=== PATIENT | female | born 1995 | race Caucasian/White ===

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

== ENCOUNTER 2017-02-06 18:18 | Emergency (ER) | payer OTHER ==
--- NOTE | 2017-02-06 19:50 | ER Document Report ---
ED Medical Screen (RME) - General Chief Complaint: Constipation Stated Complaint: ABDOMINAL PAIN Time Seen by Provider: 02/06/17 19:43 Notes: 21-year-old female patient complains of constipation. She reports she has been constipated for 3 weeks prior to having a colonoscopy done on 01/19/2017. She shows me pictures of colonoscopy claiming it shows her being backed up, but unless he is normal colonic mucosa. She reports since the colonoscopy on 2016, she has had generalized abdominal pain, only small hard stools with rectal bleeding. She reports her LMP started today, but she is quite irregular so she is unsure when her previous menstrual period was. I have greeted and performed a rapid initial assessment of this patient. A comprehensive ED assessment and evaluation of the patient, analysis of test results and completion of the medical decision making process will be conducted by additional ED providers. TRAVEL OUTSIDE OF THE [place] IN LAST 30 DAYS: No - Related Data Allergies/Adverse Reactions: latex Allergy (Verified 12/06/16 18:39) Penicillins Allergy (Verified 12/06/16 18:38) Past Medical History Renal/ Medical History: Denies: Hx Peritoneal Dialysis Surgical Hx: Other - Immunizations Hx Diphtheria, Pertussis, Tetanus Vaccination: Yes Physical Exam - Vital signs Vitals: Temp Pulse Resp BP Pulse Ox 99.3 F 87 13 116/69 99 02/06/17 18:23 02/06/17 18:23 02/06/17 18:23 02/06/17 18:23 02/06/17 18:23 Course - Vital Signs Vital signs: Temp Pulse Resp BP Pulse Ox 99.3 F 87 13 116/69 99 02/06/17 18:23 02/06/17 18:23 02/06/17 18:23 02/06/17 18:23 02/06/17 18:23
[2017-02-06 20:30] LABS: ABSOLUTE BASOPHILS # (AUTO) 0.1 10^3/uL (0.0-0.2); ABSOLUTE EOSINOPHILS # (AUTO) 0.1 10^3/uL (0.0-0.6); ABSOLUTE LYMPHOCYTES (AUTO) 3.4 10^3/uL (0.5-4.7); ABSOLUTE MONOCYTES (AUTO) 0.7 10^3/uL (0.1-1.4); ABSOLUTE NEUT (AUTO) 3.6 10^3/uL (1.7-8.2); BASOPHILS % (AUTO) 0.7 % (0-2); EOSINOPHILS % (AUTO) 1.6 % (0-6); HEMATOCRIT 39.3 % (36.0-47.0); HEMOGLOBIN 13.1 g/dL (12.0-15.5); LYMPHOCYTES % (AUTO) 42.9 % (13-45); MEAN CORPUSCULAR HEMOGLOBIN 27.8 pg (27.0-33.4); MEAN CORPUSCULAR HGB CONC 33.5 g/dL (32.0-36.0); MEAN CORPUSCULAR VOLUME 83 fl (80-97); MONOCYTES % (AUTO) 8.9 % (3-13); RED BLOOD COUNT 4.74 10^6/uL (3.72-5.28); RED CELL DISTRIBUTION WIDTH 13.2 % (11.5-14.0); SEGMENTED NEUTROPHILS % (AUTO) 45.9 % (42-78); WHITE BLOOD COUNT 7.9 10^3/uL (4.0-10.5)
[2017-02-06 20:52] LABS: ALANINE AMINOTRANSFERASE 37 U/L (5-35); ALBUMIN 4.6 g/dL (3.7-5.6); ALKALINE PHOSPHATASE 54 U/L (50-135); ANION GAP 12 (5-19); ASPARTATE AMINO TRANSFERASE 28 U/L (5-30); BILIRUBIN,DIRECT 0.3 mg/dL (0.0-0.4); BILIRUBIN,TOTAL 0.4 mg/dL (0.2-1.3); BLOOD UREA NITROGEN 6 mg/dL (7-20); CARBON DIOXIDE 23 mmol/L (22-30); CHLORIDE 106 mmol/L (98-107); CREATININE RESULT 0.68 mg/dL (0.52-1.25); GLUCOSE 83 mg/dL (75-110); POTASSIUM 4.1 mmol/L (3.6-5.0); SODIUM 141.3 mmol/L (137-145); TOTAL PROTEIN 8.1 g/dL (6.3-8.2)
--- NOTE | 2017-02-06 20:58 | ER Document Report ---
ED GI/ - General Chief Complaint: Constipation Stated Complaint: ABDOMINAL PAIN Time Seen by Provider: 02/06/17 19:43 Mode of Arrival: Ambulatory Information source: Patient TRAVEL OUTSIDE OF THE [place] IN LAST 30 DAYS: No - HPI Patient complains to provider of: Abdominal pain, Other - RECTAL BLEEDING, CONSTIPATION Onset: Last week Timing/Duration: Gradual Quality of pain: Cramping Severity at maximum: Moderate Severity in ED: Moderate Context: Other - NO NORMAL B.M. x "WEEKS". denies: Vaginal bleeding (Compared to normal period): None Menstrual period history: denies: - Related Data Allergies/Adverse Reactions: latex Allergy (Verified 02/06/17 21:15) Penicillins Allergy (Verified 02/06/17 21:15) Home Medications: Current Home Medications Fluoxetine HCl [Fluoxetine HCl] 20 mg PO DAILY 02/06/17 [History] Pantoprazole Sodium 40 mg PO DAILY 02/06/17 [History] Past Medical History - General Information source: Patient - Social History Smoking Status: Unknown if Ever Smoked Family History: Reviewed & Not Pertinent Patient has suicidal ideation: No Patient has homicidal ideation: No - Past Medical History Cardiac Medical History: Reports: None Pulmonary Medical History: Reports: None Neurological Medical History: Reports: None Endocrine Medical History: Reports: None Renal/ Medical History: Reports: None. Denies: Hx Peritoneal Dialysis Malignancy Medical History: Reports: None GI Medical History: Reports: None Musculoskeltal Medical History: Reports None Psychiatric Medical History: Reports: Hx Anxiety Surgical Hx: Other - Immunizations Hx Diphtheria, Pertussis, Tetanus Vaccination: Yes Review of Systems - Review of Systems Constitutional: No symptoms reported. denies: Chills, Fever EENT: No symptoms reported Cardiovascular: No symptoms reported Respiratory: No symptoms reported Gastrointestinal: Nausea, Vomiting, Constipation, Rectal bleeding Genitourinary: No symptoms reported Female Genitourinary: denies: Musculoskeletal: No symptoms reported Skin: No symptoms reported Neurological/Psychological: No symptoms reported Physical Exam - Vital signs Vitals: Temp Pulse Resp BP Pulse Ox 99.3 F 87 13 116/69 99 02/06/17 18:23 02/06/17 18:23 02/06/17 18:23 02/06/17 18:23 02/06/17 18:23 Interpretation: Normal - General General appearance: Appears well, Alert In distress: None - HEENT Head: Normocephalic Eyes: Normal Conjunctiva: Normal Ears: Normal Nasal: Normal Mouth/Lips: Normal Mucous membranes: Normal Pharynx: Normal Neck: Normal - Respiratory Respiratory status: No respiratory distress Breath sounds: Normal - Cardiovascular Rhythm: Regular Heart sounds: Normal auscultation Murmur: No - Abdominal Inspection: Normal Bowel sounds: Normal - Rectal Tenderness: No Hemorrhoids: None Notes: NO FISSURES OR OTHER ANAL/PERIANAL LESIONS - Back Back: Normal - Extremities General upper extremity: Normal inspection General lower extremity: Normal inspection - Neurological Neuro grossly intact: Yes Cognition: Normal Orientation: AAOx4 - Psychological Associated symptoms: Normal affect, Normal mood - Skin Skin Temperature: Warm Skin Moisture: Dry Skin Color: Normal Skin Turgor: Elastic Course - Vital Signs Vital signs: Temp Pulse Resp BP Pulse Ox 99.3 F 87 13 116/69 99 02/06/17 18:23 02/06/17 18:23 02/06/17 18:23 02/06/17 18:23 02/06/17 18:23 - Laboratory Result Diagrams: 02/06/17 20:13 02/06/17 20:13 Laboratory results interpreted by me: 02/06/17 20:13 BUN 6 L ALT 37 H Discharge - Discharge Clinical Impression: Constipation Qualifiers: Constipation type: unspecified constipation type Qualified Code(s): K59.00 - Constipation, unspecified Condition: Stable Disposition: HOME, SELF-CARE Instructions: Constipation ([facility]), Laxative ([facility]) Additional Instructions: TAKE MIRALAX DIRECTED UNTIL BOWEL MOVEMENTS ARE PRODUCED, THEN REDUCE DOSAGE TO ONCE A DAY. DRINK PLENTY OF FLUIDS. FOLLOW UP WITH YOUR PRIMARY CARE PROVIDER. Prescriptions: Polyethylene Glycol 3350 [Miralax] 17 gm PO BID PRN #[id number] gm PRN Reason:
[2017-02-06 22:59] VITALS: BP 144/78
== END 2017-02-06 22:58 | disposition home or self-care (01) ==
LOC: ER 18:18
DX: K59.00 Constipation, unspecified (principal); R10.9 Unspecified abdominal pain; Z79.899 Other long term (current) drug therapy
CPT/HCPCS: 36415; 80053; 84703; 85025; 99283

== ENCOUNTER 2017-02-17 17:43 | Emergency (ER) | payer OTHER ==
--- NOTE | 2017-02-17 18:59 | ER Document Report ---
ED Medical Screen (RME) - General TRAVEL OUTSIDE OF THE [place] IN LAST 30 DAYS: No <DILCIA GRIMES - Last Filed: 02/17/17 19:20> <PHILIP DYKES - Last Filed: 02/17/17 19:24> - General Chief Complaint: Bloody Stools Stated Complaint: BLOODY STOOLS Time Seen by Provider: 02/17/17 18:20 Notes: Patient is a 21 year old female presenting to the emergency department for bloody stools. Patient recently had a colonoscopy by Dr. Lilly for constipation. Patient states she is still constipated and is have small blood bowels. Patient states the paper was originally bloody but now both her stools and the paper are bloody. Patient states she has tried several laxatives to help with her symptoms with no relief. Patient states she has nausea and mid abdominal pain. (SYDNEYDILCIA) - Related Data Allergies/Adverse Reactions: latex Allergy (Verified 02/17/17 17:50) Penicillins Allergy (Verified 02/17/17 17:50) Past Medical History - Social History Cigarette use (# per day): No Chew tobacco use (# tins/day): No Frequency of alcohol use: None Drug Abuse: None Renal/ Medical History: Denies: Hx Peritoneal Dialysis Psychiatric Medical History: Reports: Hx Anxiety - Immunizations Hx Diphtheria, Pertussis, Tetanus Vaccination: Yes <DILCIA GRIMES - Last Filed: 02/17/17 19:20> Physical Exam <DILCIA GRIMES - Last Filed: 02/17/17 19:20> <PHILIP DYKES - Last Filed: 02/17/17 19:24> - Vital signs Vitals: Temp Pulse Resp BP Pulse Ox 97.5 F 87 20 118/70 98 02/17/17 17:50 02/17/17 17:50 02/17/17 17:50 02/17/17 17:50 02/17/17 17:50 - Notes Notes: GENERAL: Alert, interacts well, appears comfortable. No acute distress. LUNGS: Clear to auscultation bilaterally, no wheezes, rales, or rhonchi. No respiratory distress. HEART: Regular rate and rhythm. No murmurs, gallops, or rubs. ABDOMEN: Soft, mild abdominal tenderness with palpation in a seated position. No rigidity, no guarding. Non-distended. Bowel sounds present in all 4 quadrants. NEUROLOGICAL: Alert and oriented x3. Normal speech. SKIN: Normal skin tone. No pallor. (DILCIA GRIMES) Course - Laboratory Result Diagrams: 02/17/17 18:56 02/17/17 18:56 <DILCIA GRIMES - Last Filed: 02/17/17 19:20> - Laboratory Result Diagrams: 02/17/17 18:56 02/17/17 18:56 <PHILIP DYKES - Last Filed: 02/17/17 19:24> - Vital Signs Vital signs: Temp Pulse Resp BP Pulse Ox 97.5 F 87 20 118/70 98 02/17/17 17:50 02/17/17 17:50 02/17/17 17:50 02/17/17 17:50 02/17/17 17:50 - Laboratory Laboratory results interpreted by me: 02/17/17 18:56 WBC 12.2 H Absolute Neutrophils 8.3 H Scribe Documentation - Scribe Written by Scribsoren:: J Carlos Urias 02/17/17 19:00 acting as scribe for :: Julia <DILCIA GRIMES - Last Filed: 02/17/17 19:20>
[2017-02-17 19:11] LABS: ABSOLUTE EOSINOPHILS # (AUTO) 0.1 10^3/uL (0.0-0.6); ABSOLUTE LYMPHOCYTES (AUTO) 2.8 10^3/uL (0.5-4.7); ABSOLUTE NEUT (AUTO) 8.3 10^3/uL (1.7-8.2); BASOPHILS % (AUTO) 0.3 % (0-2); EOSINOPHILS % (AUTO) 1.1 % (0-6); HEMATOCRIT 38.5 % (36.0-47.0); HEMOGLOBIN 13.2 g/dL (12.0-15.5); HGB HCT DIFFERENCE 1.1; LYMPHOCYTES % (AUTO) 22.6 % (13-45); MEAN CORPUSCULAR HEMOGLOBIN 27.9 pg (27.0-33.4); MEAN CORPUSCULAR HGB CONC 34.2 g/dL (32.0-36.0); MEAN CORPUSCULAR VOLUME 82 fl (80-97); MONOCYTES % (AUTO) 8.1 % (3-13); RED BLOOD COUNT 4.72 10^6/uL (3.72-5.28); RED CELL DISTRIBUTION WIDTH 13.1 % (11.5-14.0); SEGMENTED NEUTROPHILS % (AUTO) 67.9 % (42-78); WHITE BLOOD COUNT 12.2 10^3/uL (4.0-10.5)
[2017-02-17 19:18] LABS: PROTHROMBIN TIME 13.3 SEC (11.4-15.4)
--- NOTE | 2017-02-17 19:28 | RADIOLOGY REPORT (SQ) ---
EXAM DESCRIPTION: KUB/ABDOMEN (SINGLE VIEW) COMPLETED DATE/TIME: 02/17/2017 7:16 pm REASON FOR STUDY: s/p colonoscopy, c/o inc pain, bleeding, r/o perf COMPARISON: None. NUMBER OF VIEWS: One view. TECHNIQUE: Supine radiographic image of the abdomen acquired. LIMITATIONS: None. FINDINGS: BOWEL GAS PATTERN: Normal bowel gas pattern. No dilated loops. CALCIFICATIONS: No suspicious calcifications. SOFT TISSUES: No gross mass or suggestion of organomegaly. HARDWARE: None in the abdomen. BONES: No acute fracture. No worrisome bone lesions. OTHER: No other significant finding. IMPRESSION: NO RADIOGRAPHIC EVIDENCE FOR ACUTE ABDOMINAL DISEASE. PLEASE NOTE PERFORATION CANNOT BE EXCLUDED THIS IS A SINGLE SUPINE VIEW. IF CONCERN FOR FREE AIR, RECOMMEND UPRIGHT VIEW. TECHNICAL DOCUMENTATION: JOB ID: [id number] [employer]- All Rights Reserved
[2017-02-17 19:31] LABS: ALANINE AMINOTRANSFERASE 31 U/L (5-35); ALBUMIN 4.9 g/dL (3.7-5.6); ALKALINE PHOSPHATASE 58 U/L (50-135); ANION GAP 15 (5-19); ASPARTATE AMINO TRANSFERASE 25 U/L (5-30); BILIRUBIN,DIRECT 0.3 mg/dL (0.0-0.4); BILIRUBIN,TOTAL 0.6 mg/dL (0.2-1.3); BLOOD UREA NITROGEN 14 mg/dL (7-20); CALCIUM 9.7 mg/dL (8.4-10.2); CARBON DIOXIDE 24 mmol/L (22-30); CHLORIDE 103 mmol/L (98-107); CREATININE RESULT 0.81 mg/dL (0.52-1.25); GLUCOSE 85 mg/dL (75-110); SODIUM 142.2 mmol/L (137-145); TOTAL PROTEIN 8.2 g/dL (6.3-8.2)
--- NOTE | 2017-02-17 19:52 | ER Document Report ---
ED General - General Chief Complaint: Bloody Stools Stated Complaint: BLOODY STOOLS Time Seen by Provider: 02/17/17 18:20 Notes: Patient is a 21-year-old female with a past medical history of chronic abdominal pain, chronic constipation who presents concerning that she had a bloody bowel movement today and continues to be severely constipated. States she strains extensively when trying to have bowel movements and did have a small amount of blood when she had a bowel movement today. Describes her stools as small and like rocks. She has tried 1 capful of MiraLAX for her symptoms without improvement. Nothing worsens her symptoms. She has seen a GI doctor and had a colonoscopy done but had not been given a prep beforehand so was told that the colonoscopy was nondiagnostic. She denies any significant abdominal pain at time of my assessment states that she has had some intermittent, mild, diffuse abdominal cramping. Denies any vomiting. No fever or constitutional symptoms. TRAVEL OUTSIDE OF THE [place] IN LAST 30 DAYS: No - Related Data Allergies/Adverse Reactions: latex Allergy (Verified 02/17/17 17:50) Penicillins Allergy (Verified 02/17/17 17:50) Past Medical History - General Information source: Patient - Social History Smoking Status: Former Smoker Cigarette use (# per day): No Chew tobacco use (# tins/day): No Frequency of alcohol use: None Drug Abuse: None Lives with: Spouse/Significant other Family History: Reviewed & Not Pertinent Patient has suicidal ideation: No Patient has homicidal ideation: No Renal/ Medical History: Denies: Hx Peritoneal Dialysis Psychiatric Medical History: Reports: Hx Anxiety Surgical Hx: Negative - Immunizations Hx Diphtheria, Pertussis, Tetanus Vaccination: Yes Review of Systems - Review of Systems Notes: Constitutional: Negative for fever. HENT: Negative for sore throat. Eyes: Negative for visual changes. Cardiovascular: Negative for chest pain. Respiratory: Negative for shortness of breath. Gastrointestinal: Positive for constipation and abdominal cramping Genitourinary: Negative for dysuria. Musculoskeletal: Negative for back pain. Skin: Negative for rash. Neurological: Negative for headaches, weakness or numbness. 10 point ROS negative except as marked above and in HPI. Physical Exam - Vital signs Vitals: Temp Pulse Resp BP Pulse Ox 97.5 F 87 20 118/70 98 02/17/17 17:50 02/17/17 17:50 02/17/17 17:50 02/17/17 17:50 02/17/17 17:50 Interpretation: Normal Notes: PHYSICAL EXAMINATION: GENERAL: Well-appearing, well-nourished and in no acute distress. HEAD: Atraumatic, normocephalic. EYES: Pupils equal round and reactive to light, extraocular movements intact, sclera anicteric, conjunctiva are normal. ENT: nares patent, oropharynx clear without exudates. Moist mucous membranes. NECK: Normal range of motion, supple without lymphadenopathy LUNGS: Breath sounds clear to auscultation bilaterally and equal. No wheezes rales or rhonchi. HEART: Regular rate and rhythm without murmurs ABDOMEN: Soft, nontender, normoactive bowel sounds. No guarding, no rebound. No masses appreciated. EXTREMITIES: Normal range of motion, no pitting or edema. No cyanosis. NEUROLOGICAL: No focal neurological deficits. Moves all extremities spontaneously and on command. PSYCH: Normal mood, normal affect. SKIN: Warm, Dry, normal turgor, no rashes or lesions noted. Course - Re-evaluation Re-evalutation: 02/17/17 19:49 Presentation of generalized, intermittent abdominal pain. Patient actually reports that her main concern is that she has difficulty having bowel movements and denies any actual abdominal pain at this time. Abdominal exam is benign without any focal tenderness. Vitals are normal at the time of arrival. Laboratories are unremarkable without evidence of cystitis, , or leukocytosis. Patient reports that she did have a small bloody bowel movement today and showed me a picture of this and it was a very small amount of blood around a small piece of stool. Her hemoglobin today is actually improved from when she was seen here in the . Patient is overall very well in appearance. Based on clinical history and examination I do not suspect an acute appendicitis, tubo-ovarian abscess, related pathology, pelvic inflammatory disease, mesenteric ischemia, or pyelonephritis. At this time will discharge with return precautions and follow-up recommendations. Verbal discharge instructions given a the bedside and opportunity for questions given. Medication warnings reviewed. Patient is in agreement with this plan and has verbalized understanding of return precautions and the need for primary care follow-up in the next 24-72 hours. - Vital Signs Vital signs: Temp Pulse Resp BP Pulse Ox 97.5 F 78 18 110/78 99 02/17/17 17:50 02/17/17 19:57 02/17/17 19:57 02/17/17 19:57 02/17/17 19:57 - Laboratory Result Diagrams: 02/17/17 18:56 02/17/17 18:56 Laboratory results interpreted by me: 02/17/17 18:56 WBC 12.2 H Absolute Neutrophils 8.3 H - Diagnostic Test Radiology reviewed: Image reviewed, Reports reviewed Radiology results interpreted by me: 02/17/17 19:50 KUB: Extensive constipation Discharge - Discharge Clinical Impression: Abdominal cramping, Hematochezia Constipation Qualifiers: Constipation type: unspecified constipation type Qualified Code(s): K59.00 - Constipation, unspecified Condition: Good Disposition: HOME, SELF-CARE Additional Instructions: For your constipation: You should take 8 caps of MiraLAX and placed in 1 liter of Gatorade. Drink one half of the solution and wait 4 hours. If you do not have a bowel movement take the remaining half of the solution. You have been seen in the Emergency Department (ED) for abdominal pain. Please follow up with your doctor as soon as possible regarding today's emergent visit and the symptoms that are bothering you. Return to the ED if your abdominal pain worsens or fails to improve, you develop bloody vomiting, you are unable to tolerate fluids due to vomiting, fever greater than 101, or other symptoms that concern you.
[2017-02-17 19:57] VITALS: BP 110/78
== END 2017-02-17 19:56 | disposition home or self-care (01) ==
LOC: ER 17:43
DX: K92.1 Melena (principal); K59.00 Constipation, unspecified; R10.84 Generalized abdominal pain; Z91.040 Latex allergy status; Z88.0 Allergy status to penicillin; Z87.891 Personal history of nicotine dependence
CPT/HCPCS: 36415; 74000; 80053; 85025; 85610; 99283

== ENCOUNTER 2017-03-01 16:55 | Emergency (ER) | payer OTHER ==
[2017-03-01] MEDS ORDERED: MAGNESIUM CITRATE 296 ML BOTTLE PO ONE (18:23)
[2017-03-01] MEDS ORDERED: NA PHOS,M-B/NA PHOS,DI-BA (ADULT) 133 ML ENEMA PR ONE (18:23)
--- NOTE | 2017-03-01 18:27 | ER Document Report ---
ED GI/ - General Chief Complaint: Constipation Stated Complaint: VOMITING Time Seen by Provider: 03/01/17 18:05 Mode of Arrival: Ambulatory Information source: Patient Notes: 21-year-old female presents to ED for complaint of no bowel movement since she was seen here last on February 17. She states she has signs and symptoms of jaundice because she says she knows that her eyes are turning yellow in her urine is dark even though she is drinking fluids. Her sclerae are not yellow. She was just seen on February 17 and had blood work which was normal. TRAVEL OUTSIDE OF THE [place] IN LAST 30 DAYS: No - HPI Patient complains to provider of: Other - Patient states she has constipation no bowel movement since February 17 dark yellow urine and she thinks she is turning yellow. Onset: Other - Couple weeks Timing/Duration: Gradual Severity at maximum: Severe Severity in ED: Mild, Severe Pain Level: 5 Location: LUQ, LLQ, RUQ, RLQ Vaginal bleeding (Compared to normal period): None Associated symptoms: Constipation, Other - States she has dark yellow urine and that her eyes are turning yellow and she has abdominal pain. She also complains of pelvic pain Exacerbated by: Denies Relieved by: Denies Similar symptoms previously: Yes Recently seen / treated by doctor: Yes - Related Data Allergies/Adverse Reactions: latex Allergy (Verified 03/01/17 17:16) Penicillins Allergy (Verified 03/01/17 17:16) Past Medical History - General Information source: Patient - Social History Smoking Status: Former Smoker Cigarette use (# per day): No Chew tobacco use (# tins/day): No Smoking Education Provided: No Frequency of alcohol use: None Drug Abuse: None Lives with: Family Family History: Reviewed & Not Pertinent Patient has suicidal ideation: No Patient has homicidal ideation: No - Past Medical History Cardiac Medical History: Reports: None Pulmonary Medical History: Reports: None EENT Medical History: Reports: None Neurological Medical History: Reports: None Renal/ Medical History: Reports: None Malignancy Medical History: Reports: None GI Medical History: Reports: None Musculoskeltal Medical History: Reports None Skin Medical History: Reports None Psychiatric Medical History: Reports: Hx Anxiety Traumatic Medical History: Reports: None Infectious Medical History: Reports: None Surgical Hx: Negative Past Surgical History: Reports: None - Immunizations Hx Diphtheria, Pertussis, Tetanus Vaccination: Yes Review of Systems - Review of Systems Constitutional: No symptoms reported EENT: Other - States her eyes are turning yellow Cardiovascular: No symptoms reported Respiratory: No symptoms reported Gastrointestinal: Abdominal pain Genitourinary: No symptoms reported Female Genitourinary: Other - pelvic pain Musculoskeletal: No symptoms reported Skin: Change in color - she states skin is yellow Hematologic/Lymphatic: No symptoms reported Neurological/Psychological: No symptoms reported -: Yes All other systems reviewed and negative Physical Exam - Vital signs Vitals: Temp Pulse Resp BP Pulse Ox 98.6 F 64 99 H 124/65 18 L 03/01/17 17:16 03/01/17 17:16 03/01/17 17:16 03/01/17 17:16 03/01/17 17:16 Interpretation: Normal - General General appearance: Appears well, Alert - HEENT Head: Normocephalic, Atraumatic Eyes: Normal. No: Pale conjunctiva, Scleral icterus Conjunctiva: Normal Cornea: Normal Pupils: PERRL Ears: Normal External canal: Normal Tympanic membrane: Normal Sinus: Normal Nasal: Normal Mouth/Lips: Normal Mucous membranes: Normal Pharynx: Normal - Respiratory Respiratory status: No respiratory distress Chest status: Nontender Breath sounds: Normal Chest palpation: Normal - Cardiovascular Rhythm: Regular Heart sounds: Normal auscultation Murmur: No - Abdominal Inspection: Normal Distension: No distension Bowel sounds: Normal Tenderness: Nontender. No: Tender Organomegaly: No organomegaly - Back Back: Normal, Nontender - Extremities General upper extremity: Normal inspection, Nontender, Normal color, Normal ROM , Normal temperature General lower extremity: Normal inspection, Nontender, Normal color, Normal ROM , Normal temperature, Normal weight bearing. No: Сергей's sign - Neurological Neuro grossly intact: Yes Cognition: Normal Orientation: AAOx4 [place] Coma Scale Eye Opening: Spontaneous [place] Coma Scale Verbal: Oriented [place] Coma Scale Motor: Obeys Commands [place] Coma Scale Total: 15 Speech: Normal Motor strength normal: LUE, RUE, LLE, RLE Sensory: Normal - Psychological Associated symptoms: Normal affect, Normal mood - Skin Skin Temperature: Warm Skin Moisture: Dry Skin Color: Normal Course - Re-evaluation Re-evalutation: 03/01/17 22:10 Patient was last seen on 02/17/2017 for similar symptoms. Discussed the labs from the last 3 visits with her which were normal. Send a urine today which showed a UTI. Patient was treated with antibiotics for UTI and discharged home with prescription for antibiotics. Patient instructed to follow-up with her primary doctor. Patient was also treated with MiraLAX and given a fleets enema which helped her to have a bowel movement while in the emergency room. Patient was discharged home. - Vital Signs Vital signs: Temp Pulse Resp BP Pulse Ox 98.2 F 63 18 127/75 H 99 03/01/17 19:46 03/01/17 19:46 03/01/17 19:46 03/01/17 19:46 03/01/17 19:46 - Laboratory Laboratory results interpreted by me: 03/01/17 18:28 Urine Blood SMALL H Urine Nitrite POSITIVE H Ur Leukocyte Esterase LARGE H Discharge - Discharge Clinical Impression: UTI (urinary tract infection) Qualifiers: Urinary tract infection type: site unspecified Hematuria presence: with hematuria Qualified Code(s): N39.0 - Urinary tract infection, site not specified Constipation Qualifiers: Constipation type: unspecified constipation type Qualified Code(s): K59.00 - Constipation, unspecified Condition: Stable Disposition: HOME, SELF-CARE Instructions: Family Physicians / Practices Additional Instructions: ABDOMINAL PAIN: There are many causes of abdominal pain. Pain can mean a serious problem requiring surgery (such as appendicitis). It can also be an innocent problem that goes away on its own (such as a viral infection). Often, time must pass to determine the cause of pain. The physician does not feel that hospitalization is necessary, at present. Things may change within the next 24 hours. Call the doctor or come back for re- examination if any problems occur, such as: (1) Pain that becomes more severe, steady, or becomes concentrated in one specific area. Also, pain that is more severe with movement or coughing. (2) Vomiting that persists or becomes more frequent. (3) Blood in the vomitus, urine, or bowel movements. Blood in the stool may have a tarry or black appearance. (4) Shaking chills or fever greater than 100 degrees F. (5) The abdomen becomes more distended or swollen. (6) Bowel movements cease. (7) Failure to improve as expected. URINARY TRACT INFECTION: Your evaluation indicates that you have a urinary tract infection. This is due to germs growing in the bladder. This is a common problem. This infection usually responds quickly to antibiotics. Your antibiotic should be taken exactly as prescribed. Drink plenty of fluids -- three to four quarts a day. Occasionally, a bladder anesthetic will be prescribed to help stop the feeling of urgency until the antibiotic has a chance to clear the infection. This may cause your urine to be dark orange. Certain urine infections require a culture. If the doctor obtained a culture, the results will be back in two days. You should call to see if a change in treatment is needed. A repeat urinalysis after you finish treatment is often recommended. The physician will let you know if further testing is required. Call the doctor if you develop fever, chills, flank pain, inability to urinate, or blood in the urine. CONSTIPATION: Constipation is a common problem. It is especially likely as you get older. Constipation is a common cause of abdominal pain, but sometimes causes no symptoms at all. Causes of constipation include certain medications, dehydration, diets, inactivity, and low-fiber intake. Rarely, it can be a symptom of underlying disease. The physician has evaluated you for this. Avoid constipation by eating a diet high in fiber, fruits, and vegetables. Drink plenty of liquids. Get regular exercise. If possible, avoid constipating medicines like narcotic pain medication. Some vitamin tablets can cause constipation. Stool softeners may be needed for difficult cases. An excellent stool softener is Konsyl which is available at [employer], and [employer] drug store. Just add a teaspoon to a glass of pineapple or orange juice daily or twice a day if needed. Laxatives are useful for occasional constipation. You should use them only when necessary. Too-frequent use can make your bowels dependent on them. Some over the counter laxatives available without prescription are: Milk of Magnesia, 1-2 tablespoons twice a day Dulcolax, 5 mg pill or 10 mg suppository. Citrate of Magnesia, 4-5 ounces a day for a day or two For acute constipation, Fleet's Enemas and Dulcolax suppositories are helpful. Chronic, mcc use of laxatives or enemas is not a good idea. Your bowel may become dependant on them. You do not need to have a bowel movement every day. Many people do fine with a bowel movement every three or four days. You should call your doctor or return for re-evaluation if you pass blood in the stool, or if you develop fever or increasing abdominal pain. BULK LAXATIVES: Bulk laxatives make the stool softer and bulkier. They're useful for preventing constipation. You can choose between psyllium, methylcellulose, and polycarbophil. They are available without a prescription. Psyllium brand names include Konsyl, Metamucil, Perdiem, Effer-Syllium and Hydrocil. It's available as powder, flavored drink powder, or chewable. The usual dose of psyllium powder is one heaping teaspoon in water each morning, increasing to twice a day if needed. Barber juice can disguise the slightly grainy texture. Methylcellulose is marketed as Citrucel and other brands. The average dose is two grams in a cup of water one to three times a day. Polycarbophil is marketed as Fiber-Con. Take two tablets with a cup of water one to three times a day. LAXATIVE: A laxative agent has been prescribed for your condition. This should result in passage of stool within 12 hours. Some mild intestinal cramping is common as the hard stool begins to move. You may have loose or runny stools for a short time. Contact your doctor if there is severe cramping, vomiting, or passage of blood. Return for further care if this medicine fails to improve your condition. NITROFURANTOIN (MACRODANTIN, MACROBID): You have received a prescription for nitrofurantoin (Macrodantin). This antibiotic is used for urinary tract infections. Women who are or nursing should notify the physician before taking this medicine. If you have ever had a problem caused by this medication in the past, be sure the physician is aware of it. Common side effects of this medicine include nausea, vomiting, or decreased appetite. Notify your physician if these side effects become severe. Immediately stop this medicine and call the physician if you develop cough , shortness of breath, chest pain, weakness, jaundice (yellow color of the skin and whites of the eyes), or a skin rash. FOLLOW-UP CARE: If you have been referred to a physician for follow-up care, call the physician s office for an appointment as you were instructed or within the next two days. If you experience worsening or a significant change in your symptoms, notify the physician immediately or return to the Emergency Department at any time for re-evaluation. Prescriptions: Nitrofurantoin/Nitrofuran Mac [Macrobid 100 mg Capsule] 1 tab PO BID #20 capsule
[2017-03-01 19:22] LABS: APPEARANCE,URINE SLIGHTLY-CLOUDY; BILIRUBIN,URINE NEGATIVE (NEGATIVE); GLUCOSE, URINE NEGATIVE (NEGATIVE); KETONES,URINE NEGATIVE (NEGATIVE); LEUKOCYTE ESTERASE,URINE LARGE (NEGATIVE); NITRITE,URINE POSITIVE (NEGATIVE); PROTEIN,URINE NEGATIVE (NEGATIVE); UROBILINOGEN,URINE NEGATIVE mg/dL (<2.0)
[2017-03-01] MEDS ORDERED: NITROFURANTOIN MONOHYD/M-CRYST 100 MG CAPSULE PO ONE (19:28)
[2017-03-01 19:48] VITALS: BP 127/75
== END 2017-03-01 19:45 | disposition home or self-care (01) ==
LOC: ER 16:55
DX: N39.0 Urinary tract infection, site not specified (principal); K59.00 Constipation, unspecified; R11.10 Vomiting, unspecified; Z87.891 Personal history of nicotine dependence
CPT/HCPCS: 99283; 87086; 81025; 87088; 81001; 87186; J3490 ×2; J8499

== ENCOUNTER 2017-04-02 19:25 | Emergency (ER) | payer OTHER ==
[2017-04-02 19:49] VITALS: BP 104/72
[2017-04-02 20:37] LABS: AMORPHOUS SEDIMENT,URINE TRACE /HPF; APPEARANCE,URINE CLOUDY; BILIRUBIN,URINE NEGATIVE (NEGATIVE); GLUCOSE, URINE NEGATIVE (NEGATIVE); KETONES,URINE NEGATIVE (NEGATIVE); LEUKOCYTE ESTERASE,URINE LARGE (NEGATIVE); NITRITE,URINE NEGATIVE (NEGATIVE); PROTEIN,URINE NEGATIVE (NEGATIVE); URINE SPECIFIC GRAVITY 1.012; UROBILINOGEN,URINE NEGATIVE mg/dL (<2.0)
[2017-04-02 20:52] LABS: ABSOLUTE EOSINOPHILS # (AUTO) 0.1 10^3/uL (0.0-0.6); ABSOLUTE LYMPHOCYTES (AUTO) 3.2 10^3/uL (0.5-4.7); ABSOLUTE MONOCYTES (AUTO) 0.8 10^3/uL (0.1-1.4); ABSOLUTE NEUT (AUTO) 3.5 10^3/uL (1.7-8.2); BASOPHILS % (AUTO) 0.4 % (0-2); EOSINOPHILS % (AUTO) 1.1 % (0-6); HEMATOCRIT 38.4 % (36.0-47.0); HGB HCT DIFFERENCE 0.6; LYMPHOCYTES % (AUTO) 41.9 % (13-45); MEAN CORPUSCULAR HEMOGLOBIN 27.3 pg (27.0-33.4); MEAN CORPUSCULAR HGB CONC 33.9 g/dL (32.0-36.0); MEAN CORPUSCULAR VOLUME 80 fl (80-97); MONOCYTES % (AUTO) 10.5 % (3-13); RED BLOOD COUNT 4.78 10^6/uL (3.72-5.28); RED CELL DISTRIBUTION WIDTH 13.5 % (11.5-14.0); SEGMENTED NEUTROPHILS % (AUTO) 46.1 % (42-78); WHITE BLOOD COUNT 7.6 10^3/uL (4.0-10.5)
[2017-04-02 21:07] LABS: ANION GAP 12 (5-19); BLOOD UREA NITROGEN 7 mg/dL (7-20); CALCIUM 9.6 mg/dL (8.4-10.2); CARBON DIOXIDE 24 mmol/L (22-30); CHLORIDE 105 mmol/L (98-107); CREATININE RESULT 0.71 mg/dL (0.52-1.25); GLUCOSE 77 mg/dL (75-110); POTASSIUM 3.8 mmol/L (3.6-5.0); SODIUM 141.4 mmol/L (137-145)
--- NOTE | 2017-04-02 22:42 | ER Document Report ---
ED General - General Chief Complaint: Other Stated Complaint: MISSED PERIOD Time Seen by Provider: 04/02/17 20:22 Mode of Arrival: Ambulatory Information source: Patient, Relative Notes: Patient is a 21-year-old female comes with her significant other stating that she has not had a menstrual period in 4-5 weeks. Patient states she also went to the [facility] and was treated for urinary tract infection but does not remember she was or not. She states that she has had increased amounts of urination she has had severe vomiting or especially early in the morning and is taking some medication for that is not helping. Patient states she only has a history of IBS. She denies having any vaginal bleeding spotting or pain. TRAVEL OUTSIDE OF THE [place] IN LAST 30 DAYS: No - HPI Onset: Last week Onset/Duration: Waxing and waning Quality of pain: No pain Severity: Mild Pain Level: 1 Associated symptoms: None, Nausea, Vomiting Exacerbated by: Food Relieved by: Denies Similar symptoms previously: Yes Recently seen / treated by doctor: Yes - Related Data Allergies/Adverse Reactions: latex Allergy (Verified 03/01/17 17:16) Penicillins Allergy (Verified 03/01/17 17:16) Past Medical History - Social History Smoking Status: Unknown if Ever Smoked Family History: Reviewed & Not Pertinent Patient has suicidal ideation: No Patient has homicidal ideation: No Renal/ Medical History: Denies: Hx Peritoneal Dialysis Psychiatric Medical History: Reports: Hx Anxiety - Immunizations Hx Diphtheria, Pertussis, Tetanus Vaccination: Yes Review of Systems - Review of Systems Constitutional: No symptoms reported EENT: No symptoms reported Cardiovascular: No symptoms reported Respiratory: No symptoms reported Gastrointestinal: Nausea, Vomiting Genitourinary: Dysuria, Urgency. denies: Discharge Female Genitourinary: No symptoms reported Musculoskeletal: No symptoms reported Skin: No symptoms reported Hematologic/Lymphatic: No symptoms reported Neurological/Psychological: No symptoms reported -: Yes All other systems reviewed and negative Physical Exam - Vital signs Vitals: Temp Pulse Resp BP Pulse Ox 98.8 F 102 H 18 104/72 98 04/02/17 19:46 04/02/17 19:46 04/02/17 19:46 04/02/17 19:46 04/02/17 19:46 - Notes Notes: Sharon is a 89-year-old female who is accompanied with her significant other and a service dog. Patient has dog to examine states she is in the [place] but she is somewhat scattered on her thoughts. It may be because she is just excited about being difficult to tell. - General General appearance: Appears well, Other - HEENT Head: Normocephalic, Atraumatic Eyes: Normal Conjunctiva: Normal Mouth/Lips: Normal Mucous membranes: Normal, Moist Pharynx: Normal Neck: Normal - Respiratory Respiratory status: No respiratory distress Chest status: Nontender Breath sounds: Normal. No: Rales, Rhonchi, Stridor, Wheezing Chest palpation: Normal - Cardiovascular Rhythm: Tachycardia Heart sounds: Normal auscultation Murmur: No - Abdominal Inspection: Normal Distension: No distension. No: Distended, Distended bladder Bowel sounds: Normal Tenderness: Nontender Organomegaly: No organomegaly - Neurological Neuro grossly intact: Yes Cognition: Normal Orientation: AAOx4 [place] Coma Scale Eye Opening: Spontaneous [place] Coma Scale Verbal: Oriented [place] Coma Scale Motor: Obeys Commands [place] Coma Scale Total: 15 Speech: Normal - Skin Skin Temperature: Warm Skin Moisture: Dry Skin Color: Normal, [place] Skin Turgor: Elastic Course - Vital Signs Vital signs: Temp Pulse Resp BP Pulse Ox 98.8 F 102 H 18 104/72 98 04/02/17 19:46 04/02/17 19:46 04/02/17 19:46 04/02/17 19:46 04/02/17 19:46 - Laboratory Result Diagrams: 04/02/17 20:44 04/02/17 20:44 Laboratory results interpreted by me: 04/02/17 04/02/17 04/02/17 19:59 20:44 20:44 Serum HCG, Qual POSITIVE H Beta HCG, Quant 78.20 H Ur Leukocyte Esterase LARGE H Urine HCG, Qual POSITIVE H - Transfer of Care Notes: 04/02/17 22:48 Patient's labs basically showed that she had positive urine and positive blood qualitative for I had her on a quantitative it runs about 78 which is barely . I have explained this to the patient and her boyfriend and have informed him the need to follow-up with her [employer] at the [facility] to monitor these numbers every 2-3 days. Patient does not want anything more for nausea she will continue with her antibiotic given to her by the [facility] and per her boyfriend they will contact them tomorrow for follow-up. Patient has been in no distress and is having no abdominal pain she is having no spotting and she is having no bleeding of any kind. She is here for confirmation of only. At this point with her being so low on her quantitative I do not feel it necessary to do an ultrasound. Discharge - Discharge Clinical Impression: Qualifiers: Weeks of gestation: less than 8 weeks Qualified Code(s): Z3A.01 - Less than 8 weeks gestation of Condition: Stable Disposition: HOME, SELF-CARE Additional Instructions: You are . care is best started as early in as possible. If you're unsure about continuing this , you should discuss this with your physician or with school adjustment counselor at [facility]. You should take only medications approved by your physician. Acetaminophen can safely be taken for minor pains. As a rule, medication for chronic conditions such as asthma or seizures can safely be continued. You should discuss with the physician every medicine you take. Any regular exercise program can be continued. Talk to your physician, however, before engaging in competitive or demanding sports. Alcohol, smoking, and "street drugs" are dangerous to your baby. Cocaine is especially dangerous. Don't use any illicit drugs! Home and rest. As we discussed the numbers that we have done show that you are just barely . I highly suggest that she follow-up as you have indicated to me with the [facility] for [employer]LECT[employer] care. At this time it is too early in the to do an ultrasound and without having any type of vaginal bleeding and/or pain we have to wait until you progress a little further. However should you have any abdominal pain any spotting or bleeding return to ER for a recheck. Forms: Elevated Blood Pressure Referrals: JOSE KIM, [Primary Care Provider] - Follow up as needed
== END 2017-04-02 23:00 | disposition home or self-care (01) ==
LOC: ER 19:25
DX: O26.91 Pregnancy related conditions, unspecified, first trimester (principal); Z3A.01 Less than 8 weeks gestation of pregnancy; Z91.040 Latex allergy status; Z88.0 Allergy status to penicillin
CPT/HCPCS: 36415; 80048; 81001; 81025; 84702; 84703; 85025; 99282

== ENCOUNTER 2017-05-15 20:23 | Emergency (ER) | payer OTHER ==
--- NOTE | 2017-05-15 22:06 | ER Document Report ---
ED General - General Chief Complaint: Rash Stated Complaint: RASH Time Seen by Provider: 05/15/17 21:46 Mode of Arrival: Ambulatory Information source: Patient TRAVEL OUTSIDE OF THE [place] IN LAST 30 DAYS: No - HPI Patient complains to provider of: Positive cultures Quality of pain: No pain Associated symptoms: None Exacerbated by: Denies Relieved by: Denies Notes: Patient is a 21-year-old female who is currently approximately 10 weeks , she was recently seen at [facility] and filled out paperwork and had blood drawn, she was called by them earlier today and told that cultures came back positive for Staphylococcus aureus, therefore she came to this emergency room for follow-up, she is unsure whether the cultures were blood in her urine, as she did not have any skin wounds that were cultured, she is unsure if it was blood if it was 1 bottle or 2, and she is unsure whether she has any symptoms related to this process, but denies of fever, no nausea, vomiting or diarrhea, no sore throat, no dysuria or hematuria, no urinary frequency, she does report a slightly irritating rash in her medial superior thighs that has been there for the past few days, she has not taken any medication to treat this - Related Data Allergies/Adverse Reactions: latex Allergy (Verified 05/02/17 18:56) Penicillins Allergy (Verified 05/02/17 18:56) Past Medical History - General Information source: Patient - Social History Smoking Status: Never Smoker Chew tobacco use (# tins/day): No Frequency of alcohol use: None Drug Abuse: None Family History: Reviewed & Not Pertinent Patient has suicidal ideation: No Patient has homicidal ideation: No Renal/ Medical History: Denies: Hx Peritoneal Dialysis Psychiatric Medical History: Reports: Hx Anxiety - Immunizations Hx Diphtheria, Pertussis, Tetanus Vaccination: Yes Review of Systems - Review of Systems Constitutional: No symptoms reported EENT: No symptoms reported Cardiovascular: No symptoms reported Respiratory: No symptoms reported Gastrointestinal: No symptoms reported Genitourinary: No symptoms reported Female Genitourinary: No symptoms reported Musculoskeletal: No symptoms reported Skin: Rash Hematologic/Lymphatic: No symptoms reported Neurological/Psychological: No symptoms reported -: Yes All other systems reviewed and negative Physical Exam - Vital signs Vitals: Temp Pulse Resp BP Pulse Ox 98.3 F 64 16 110/52 L 100 05/15/17 20:34 05/15/17 20:34 05/15/17 20:34 05/15/17 20:34 05/15/17 20:34 Interpretation: Normal - General General appearance: Appears well, Alert - HEENT Head: Normocephalic, Atraumatic Eyes: Normal Pupils: PERRL - Respiratory Respiratory status: No respiratory distress Chest status: Nontender Breath sounds: Normal Chest palpation: Normal - Cardiovascular Rhythm: Regular Heart sounds: Normal auscultation Murmur: No - Abdominal Inspection: Normal, Gravid female Distension: No distension Bowel sounds: Normal Tenderness: Nontender Organomegaly: No organomegaly - Back Back: Normal, Nontender - Extremities General upper extremity: Normal inspection, Nontender, Normal color, Normal ROM , Normal temperature General lower extremity: Normal inspection, Nontender, Normal color, Normal ROM , Normal temperature, Normal weight bearing. No: Сергей's sign - Neurological Neuro grossly intact: Yes Cognition: Normal Orientation: AAOx4 [place] Coma Scale Eye Opening: Spontaneous [place] Coma Scale Verbal: Oriented [place] Coma Scale Motor: Obeys Commands [place] Coma Scale Total: 15 Speech: Normal Motor strength normal: LUE, RUE, LLE, RLE Sensory: Normal - Psychological Associated symptoms: Normal affect, Normal mood - Skin Skin Temperature: Warm Skin Moisture: Dry Location of irregularity: Other - Patient has a slightly erythematous raised rash on the medial upper thighs, no drainage, no vesicles, resembling chafing skin irritation Course - Re-evaluation Re-evalutation: 05/15/17 23:05 I offered to repeat blood and urine cultures for patient as I did not have access to the test that were done at [facility] previously, I did explain to her that it would take 3 days for me to get any culture results back, but that she does not appear ill, she does not have a fever and she has no other concerning symptoms related to an infection by Staphylococcus aureus, therefore advised that it would be best for her to follow back up at the place that she had the blood work done at [facility] where they can locate the exact results and explained to her better what the findings are since I do not have access to these tests, patient and at bedside are in agreement with this plan - Vital Signs Vital signs: Temp Pulse Resp BP Pulse Ox 98.3 F 68 18 95/57 L 98 05/15/17 20:34 05/15/17 22:21 05/15/17 22:21 05/15/17 22:21 05/15/17 22:21 Discharge - Discharge Clinical Impression: Abnormal laboratory test Condition: Stable Disposition: HOME, SELF-CARE Instructions: Blood Test Information ([facility]), Repeat Blood Test ([facility]) Additional Instructions: Follow up with your OBGYN at [facility] for further information regarding your positive culture tests. Return to the nearest emergency room if any additional concerns.
[2017-05-15 22:22] VITALS: BP 95/57
== END 2017-05-15 22:21 | disposition home or self-care (01) ==
LOC: ER 20:23
DX: O26.91 Pregnancy related conditions, unspecified, first trimester (principal); R78.89 Finding of other specified substances, not normally found in blood; R21 Rash and other nonspecific skin eruption; Z3A.10 10 weeks gestation of pregnancy; Z91.040 Latex allergy status; Z88.0 Allergy status to penicillin
CPT/HCPCS: 99283

== ENCOUNTER 2017-08-26 23:17 | Emergency (ER) | payer OTHER ==
[2017-08-26 23:31] VITALS: BP 110/65
--- NOTE | 2017-08-27 00:27 | ER Document Report ---
HPI - HPI Pain Level: 3 Notes: Patient is a 22-year-old female who presents ED complaining of an insect bite to her left lateral ankle prior to arrival. Patient states that she was at [employer] in the mulch letting her dog to the bathroom when she felt a bug bite her. Patient states that she does have some soreness and itching associated. She has not noticed any abscess or purulent discharge nor any streaks. She has been otherwise healthy without any other recent illness. Denies any headache, fever, neck pain, URI, sore throat, chest pain, palpitations, syncope, cough, shortness of breath, wheeze, dyspnea, abdominal pain, nausea/vomiting/diarrhea, urinary retention, dysuria, hematuria, or rash. - ROS Systems Reviewed and Negative: Yes All other systems reviewed and negative - REPRODUCTIVE Reproductive: REPORTS: : Past Medical History - Social History Smoking Status: Never Smoker Family History: Reviewed & Not Pertinent Renal/ Medical History: Denies: Hx Peritoneal Dialysis Psychiatric Medical History: Reports: Hx Anxiety - Immunizations Hx Diphtheria, Pertussis, Tetanus Vaccination: Yes Vertical Provider Document - CONSTITUTIONAL Agree With Documented VS: Yes Notes: PHYSICAL EXAMINATION: GENERAL: Well-appearing, well-nourished and in no acute distress. LUNGS: Breath sounds clear to auscultation bilaterally and equal. No wheezes rales or rhonchi. HEART: Regular rate and rhythm without murmurs, rubs, gallops. Musculoskeletal: Left ankle: FROM to passive/active. Strength 5+/5. Extremities: No cyanosis, clubbing, or edema b/l. Peripheral pulses 2+. Capillary refill less than 3 seconds. NEUROLOGICAL: Cranial nerves grossly intact. Normal speech, normal gait. Normal sensory, motor exams PSYCH: Normal mood, normal affect. SKIN: Left lateral ankle: very small 0.1cm erythemic maculopapular lesion noted. No abscess, induration, streaks, or purulent discharge. - INFECTION CONTROL TRAVEL OUTSIDE OF THE [place] IN LAST 30 DAYS: No - RESPIRATORY O2 Sat by Pulse Oximetry: 98 Course - Re-evaluation Re-evalutation: 08/27/17 00:24 Patient is an afebrile, well-hydrated, 22-year-old female who presents the ED with a presumed insect bite, benign-appearing. Vitals are acceptable. PE is otherwise unremarkable. No labs or imaging warranted at this time based on H& P. No incision and drainage warranted based on H&P today. The size of this lesion is 0.1 cm without any signs of cellulitis or abscess. Recommend conservative measures for symptoms. Low suspicion for any necrotizing fasciitis , sepsis, septic joint, or other systemic emergent condition at this time. Patient to monitor closely and seek medical attention with acute changes. Recheck with your PCM in 3-5 days. Return to the ED with any worsening/ concerning symptoms otherwise as reviewed discharge. Patient is in agreement. - Vital Signs Vital signs: Temp Pulse Resp BP Pulse Ox 98.5 F 80 22 H 110/65 98 08/26/17 23:26 08/26/17 23:26 08/26/17 23:26 08/26/17 23:26 08/26/17 23:26 Discharge - Discharge Clinical Impression: Insect bite Qualifiers: Encounter type: initial encounter Qualified Code(s): W57.XXXA - Bitten or stung by nonvenomous insect and other nonvenomous arthropods, initial encounter Condition: Stable Disposition: HOME, SELF-CARE Additional Instructions: Keep the skin clean Wash with soap and water Tylenol/ibuprofen if needed Triple antibiotic ointment daily if any break in the skin May use otc benadryl cream if needed Take medication as directed Monitor for any worsening symptoms Recheck with your PCM in 3-5 days Return to the ED with any worsening symptoms and/or development of fever, headache, chest pain, palpitations, syncope, shortness of breath, trouble breathing, abdominal pain, n/v/d, abscess, purulent discharge, red streaks, worsening swelling, or other worsening symptoms that are concerning to you. Referrals: OMARI ROBLES DO [ACTIVE STAFF] - Follow up as needed
== END 2017-08-27 00:58 | disposition home or self-care (01) ==
LOC: ER 23:17
DX: O9A.219 Injury, poisoning and certain other consequences of external causes complicating pregnancy, unspecified trimester (principal); S90.562A Insect bite (nonvenomous), left ankle, initial encounter; W57.XXXA Bitten or stung by nonvenomous insect and other nonvenomous arthropods, initial encounter; Y93.K9 Activity, other involving animal care; Y92.512 Supermarket, store or market as the place of occurrence of the external cause; Z3A.00 Weeks of gestation of pregnancy not specified
CPT/HCPCS: 99281

== ENCOUNTER 2018-06-03 14:38 | Emergency (ER) | payer OTHER ==
[2018-06-03 15:33] LABS: AMORPHOUS SEDIMENT,URINE TRACE /HPF; APPEARANCE,URINE TURBID; BILIRUBIN,URINE NEGATIVE (NEGATIVE); COLOR,URINE YELLOW; GLUCOSE, URINE NEGATIVE (NEGATIVE); KETONES,URINE NEGATIVE (NEGATIVE); LEUKOCYTE ESTERASE,URINE LARGE (NEGATIVE); NITRITE,URINE NEGATIVE (NEGATIVE); PROTEIN,URINE 30 mg/dL (NEGATIVE); URINE SPECIFIC GRAVITY 1.028; UROBILINOGEN,URINE NEGATIVE mg/dL (<2.0)
[2018-06-03] MEDS ORDERED: MORPHINE SULFATE 10 MG/ML INJ IV ONE (15:34)
[2018-06-03] MEDS ORDERED: KETOROLAC TROMETHAMINE INJ/PF 30 MG/1 ML SDV IV ONE (15:34)
[2018-06-03] MEDS ORDERED: ONDANSETRON HCL INJ/PF 4 MG/2 ML SDV IV ONE (15:34)
[2018-06-03 16:14] LABS: URINE AMPHETAMINES SCREEN NEGATIVE; URINE BARBITURATES SCREEN NEGATIVE; URINE BENZODIAZEPINES SCREEN NEGATIVE; URINE COCAINE SCREEN NEGATIVE; URINE MARIJUANA (THC) SCREEN NEGATIVE; URINE METHADONE SCREEN NEGATIVE; URINE PHENCYCLIDINE SCREEN NEGATIVE
[2018-06-03 16:42] LABS: ABSOLUTE BASOPHILS # (AUTO) 0.1 10^3/uL (0.0-0.2); ABSOLUTE EOSINOPHILS # (AUTO) 0.1 10^3/uL (0.0-0.6); ABSOLUTE LYMPHOCYTES (AUTO) 2.6 10^3/uL (0.5-4.7); ABSOLUTE MONOCYTES (AUTO) 0.5 10^3/uL (0.1-1.4); ABSOLUTE NEUT (AUTO) 2.6 10^3/uL (1.7-8.2); BASOPHILS % (AUTO) 1.1 % (0-2); EOSINOPHILS % (AUTO) 1.5 % (0-6); HEMOGLOBIN 13.8 g/dL (12.0-15.5); LYMPHOCYTES % (AUTO) 44.7 % (13-45); MEAN CORPUSCULAR HEMOGLOBIN 28.4 pg (27.0-33.4); MEAN CORPUSCULAR HGB CONC 34.6 g/dL (32.0-36.0); MEAN CORPUSCULAR VOLUME 82 fl (80-97); MONOCYTES % (AUTO) 8.7 % (3-13); PLATELET COUNT 338 10^3/uL (150-450); RED BLOOD COUNT 4.87 10^6/uL (3.72-5.28); RED CELL DISTRIBUTION WIDTH 13.3 % (11.5-14.0); TOTAL CELLS COUNTED % (AUTO) 100 %; WHITE BLOOD COUNT 5.9 10^3/uL (4.0-10.5)
[2018-06-03 17:00] LABS: ALANINE AMINOTRANSFERASE 22 U/L (9-52); ALBUMIN 4.6 g/dL (3.5-5.0); ALKALINE PHOSPHATASE 57 U/L (38-126); ANION GAP 13 (5-19); ASPARTATE AMINO TRANSFERASE 32 U/L (14-36); BILIRUBIN,DIRECT 0.1 mg/dL (0.0-0.4); BILIRUBIN,TOTAL 0.6 mg/dL (0.2-1.3); BLOOD UREA NITROGEN 8 mg/dL (7-20); CALCIUM 9.4 mg/dL (8.4-10.2); CARBON DIOXIDE 23 mmol/L (22-30); CHLORIDE 105 mmol/L (98-107); GLUCOSE 88 mg/dL (75-110); SODIUM 141.4 mmol/L (137-145); TOTAL PROTEIN 7.7 g/dL (6.3-8.2)
[2018-06-03 18:03] LABS: RBCS (WET MOUNT) RARE RBCS SEEN; T.VAGINALIS (WET MOUNT) NO TRICHOMONAS SEEN; WBCS (WET MOUNT) FEW WBCS SEEN; YEAST (WET MOUNT) YEAST SEEN
--- NOTE | 2018-06-03 19:30 | RADIOLOGY REPORT (SQ) ---
EXAM DESCRIPTION: U/S NON OB PEL TV W/DOPPLER COMPLETED DATE/TIME: 06/03/2018 7:18 pm REASON FOR STUDY: Pelvic pain COMPARISON: None. TECHNIQUE: Dynamic and static grayscale images acquired of the pelvis via transvaginal approach and recorded on PACS. Additional selected color Doppler and spectral images recorded. LIMITATIONS: None. FINDINGS: UTERUS: Contour normal. No mass. ENDOMETRIAL STRIPE: No focal or generalized thickening. No masses. CERVIX: No nabothian cysts. RIGHT OVARY AND DOPPLER: Normal size. No worrisome masses. Normal arterial vascular flow without evid ence for torsion. LEFT OVARY AND DOPPLER: Normal size. No worrisome masses. Normal arterial vascular flow without evide nce for torsion. 1.7 cm functional cysts. FREE FLUID: None noted. OTHER: No other significant finding. MEASUREMENTS: UTERUS: 6.8 cm ENDOMETRIAL STRIPE: 7.4 mm RIGHT OVARY: 2.9 cm LEFT OVARY: 3.6 cm IMPRESSION: Dominant functional cyst measuring under 2 cm in the left ovary. Otherwise normal ultra sound. TECHNICAL DOCUMENTATION: JOB ID: [id number] [employer]- All Rights Reserved Rev-11/10 Reading location - IP/workstation name: [email or web address]
[2018-06-03 19:33] LABS: CHLAM PCR NOT DETECTED (NOT DETECT); GON PCR NOT DETECTED (NOT DETECT)
--- NOTE | 2018-06-03 20:06 | ER Document Report ---
ED GI/ - General Chief Complaint: Pelvic Pain Stated Complaint: ABDOMINAL PAIN Time Seen by Provider: 06/03/18 15:24 Information source: Patient Notes: Patient is a 23-year-old female comes into the emergency room coming by her and her 6-month-old baby. Patient complains of right lower abdominal pain. Patient's been seen at [facility] approximately a week ago for similar presentation. Patient states that she has right lower quadrant pain they did a ultrasound and they found a hemorrhagic cyst on the right side and they also ran a CT scan to be sure and that also showed the cyst. Patient states that she complained of stabbing dysuria and she had a picture with her of her urine which was bloody red and she states they did nothing about my urine. She is back today in our facility because she felt like she needed better treatment. She states the pain on the right side is gotten so bad that she is excessively nauseated and is unable to eat anything because of that. She states that her anxiety level also make it worse. She also informs me that her primary care provider has set her up to see an TYPING TEACHER but it has not been approved yet by her insurance. The appointment has been made but not approved. Patient is not breast-feeding but states that her milk went away and has come back again. She also states she has had a history of ovarian cyst in the past as well. The past 2 days have been very uncomfortable for her and the intensity has been increasing. She states the pain starts in the right and it moves to her back as well as to the left side. TRAVEL OUTSIDE OF THE [place] IN LAST 30 DAYS: No - HPI Patient complains to provider of: No: Vaginal discharge, Vomiting Onset: Other - 2 days Timing/Duration: Sudden, Persistent, Worse Quality of pain: Achy, Cramping, Throbbing Severity at maximum: Severe Severity in ED: Moderate, Severe Pain Level: 4 Location: RLQ, Low back, Suprapubic Vaginal bleeding (Compared to normal period): None. denies: Spotting LMP: April 26 : 1 Para: 1 Abortions: 0 OB ultrasound done: No vitamins taken: No Sexual history: Active Associated symptoms: Hematuria, Nausea, Painful intercourse, Urinary urgency. denies: Vaginal discharge Exacerbated by: Denies Relieved by: Denies Similar symptoms previously: Yes Recently seen / treated by doctor: Yes - Related Data Allergies/Adverse Reactions: latex Allergy (Verified 05/02/17 18:56) Penicillins Allergy (Verified 05/02/17 18:56) Past Medical History - General Information source: Patient - Social History Smoking Status: Never Smoker Cigarette use (# per day): No Chew tobacco use (# tins/day): No Smoking Education Provided: No Frequency of alcohol use: Rare Drug Abuse: None Lives with: Spouse/Significant other Family History: Reviewed & Not Pertinent Patient has suicidal ideation: No Patient has homicidal ideation: No Renal/ Medical History: Denies: Hx Peritoneal Dialysis Psychiatric Medical History: Reports: Hx Anxiety - Immunizations Hx Diphtheria, Pertussis, Tetanus Vaccination: Yes Review of Systems - Review of Systems Constitutional: Weakness EENT: No symptoms reported Cardiovascular: No symptoms reported Respiratory: No symptoms reported Gastrointestinal: No symptoms reported Genitourinary: Dysuria, Flank pain, Hematuria, Retention. denies: Discharge Female Genitourinary: See HPI, Other - Pelvic pain Musculoskeletal: No symptoms reported Skin: No symptoms reported Hematologic/Lymphatic: No symptoms reported Neurological/Psychological: No symptoms reported -: Yes All other systems reviewed and negative Physical Exam - Vital signs Vitals: Temp Pulse Resp BP Pulse Ox 98.5 F 83 18 115/79 98 06/03/18 14:49 06/03/18 14:49 06/03/18 14:49 06/03/18 14:49 06/03/18 14:49 Interpretation: Normal - Notes Notes: PHYSICAL EXAMINATION: GENERAL: Patient is a well-nourished well-developed 4-year-old female who is status post by 6 months. She is in no acute distress but she does appear to be somewhat uncomfortable. She has slight amount of anxiety is noted in her voice and her presentation of the story. She is a coming by her and there are newly born child. HEAD: Atraumatic, normocephalic. EYES: Pupils equal round and reactive to light, extraocular movements intact, conjunctiva are normal. ENT: Nares patent, oropharynx clear without exudates. Moist mucous membranes. NECK: Normal range of motion, supple without lymphadenopathy LUNGS: Breath sounds clear to auscultation bilaterally and equal. No wheezes rales or rhonchi. HEART: Regular rate and rhythm without murmurs ABDOMEN: Examination patient's abdomen shows she has bowel sounds all 4 quads. There is slight amount of tenderness in the right lateral lower quadrant area. Does not seem to be periumbilical on palpation. There is some referred discomfort when palpated in the right lower quadrant to the left and left to the right. Very difficult to distinguish but again does not appear to be periumbilical. Patient also displays some mild suprapubic tenderness to palpation as well. I am not able to palpate a full bladder at this time. Female : Examination of patient's external genitalia shows her to be normal in appearance. Further investigation shows the vaginal canal to be moist and pink no abnormal findings and no discharge noted. The cervix appears to be anteverted and is found after some searching. The cervix itself appears smaller than most. The office is now straightened secondary to recent . The frontal portion of the seems to be defaced slightly by a more raw appearance most likely secondary to . There is no severe tenderness to palpation of the cervix so I do not believe she has any CMT. Bimanual also shows no CMT at present. There was a slight amount of discharge surrounding the cervix posteriorly which was weighed each color. But was a very scant amount. Musculoskeletal: Normal range of motion, no pitting or edema. No cyanosis. NEUROLOGICAL: Normal speech, normal gait. Normal sensory, motor exams PSYCH: Normal mood, normal affect. SKIN: Warm, Dry, normal turgor, no rashes or lesions noted. Course - Re-evaluation Re-evalutation: 06/04/18 01:16 Patient had an extended stay because she kind of Stretching things out. Originally she became and she informed me that she had had a workup done at [facility] about a week ago where she had a pelvic ultrasound done that showed that she had a hemorrhagic cyst on the right side was fairly large and a CT that confirmed that of which she kind of showed me the pictures on her cell phone. Originally I did lab work and urine and the urine came back what appeared to be dirty although it was not a great clean-catch and had a large leukocytes so I have cultured that and I decided to treat it. When I went back into the room to inform patient of this I also offered to do a pelvic exam since she was having some discomfort and since they will had not done that. She agreed to the pelvic exam and results are fairly benign but that is not my report. Once I finished that I was typing patient's papers up to discharge and treat her UTI when she relayed the message to nursing that she would really like to get the ultrasound repeated again because she is not certain that the presentation has not changed. Given that I went ahead and ordered the ultrasound which I had wanted to do from the start and it took quite a while to get completed. Once completed it showed the patient had a normal looking right sided ovary and no hemorrhagic cyst on that side and she had a 2 cm ovarian cyst on the left. So the presentation of pain and discomfort did not correlate with the physical findings on the ultrasound. I do not believe this was a appendix presentation again it was not periumbilical and patient's white count was normal. Given the patient had asked for pain medication when she first came in and I gave her for morphine and Toradol the entire time she was here she never asked for anything more. I did check her on the [facility] aware database and there were no hits at all. I truly believe patient has something that is bothering her physically but cannot find it currently at this time. All of the other labs were normal could be related to just a severe urinary tract infection causing the discomfort and difficulty in isolating the area. We are treating her with Bactrim and Diflucan. I did write her for a little bit of pain medication secondary to the discomfort she was in when she got here. She is not breast-feeding she has no intention of breast-feeding. I told her that she did she would have to stop taking any type of pain medication and would also have the have her talk to her TYPING TEACHER about which antibiotic she can take the did not crossover into the breastmilk. Also patient is supposed to have a new referral to a TYPING TEACHER so she can follow-up from her primary care providers point of view has just been getting clearance from the insurance company although that is all that is needed. I have informed patient she has any concerns or problems she spikes a fever or pain intensifies to return to ER for recheck. - Vital Signs Vital signs: Temp Pulse Resp BP Pulse Ox 98.8 F 78 16 118/68 100 06/03/18 20:32 06/03/18 20:32 06/03/18 20:32 06/03/18 20:32 06/03/18 20:32 - Laboratory Result Diagrams: 06/03/18 16:15 12/09/18 16:15 Laboratory results interpreted by me: 06/03/18 14:45 Urine Protein 30 H Ur Leukocyte Esterase LARGE H Discharge - Discharge Clinical Impression: Pelvic pain UTI (urinary tract infection) Qualifiers: Urinary tract infection type: acute cystitis Hematuria presence: with hematuria Qualified Code(s): N30.01 - Acute cystitis with hematuria Condition: Stable Disposition: HOME, SELF-CARE Instructions: Antibiotic Therapy ([facility]), Pelvic Pain ([facility]), Trimethoprim-Sulfa ( [facility]), Urinary Tract Infection ([facility]) Additional Instructions: Home and rest. Medication as prescribed. Increase your fluids but avoid soda and foods high in sugar content. I am writing you for Diflucan take 1 tablet by mouth day 1 of the antibiotics and 1 tablet long-term through the antibiotics. I am doing this because you already have a yeast infection was detected on the slides that we did from the pelvic exam. And we will put you on an antibiotic and they will make it worse. Highly recommend that she follow-up with your TYPING TEACHER keep the appointment that she her primary is setting up for you so that you can discuss the findings of the ultrasound that we did versus the ultrasound that they did over on the post. Should you have any concerns or problems return back to ER for a recheck. Prescriptions: Fluconazole [Diflucan] 150 mg PO ASDIR PRN #2 tablet PRN Reason: Hydrocodone/Acetaminophen [[place] 5-325 mg Tablet] 1 tab PO Q6 PRN #12 tablet PRN Reason: Promethazine HCl 12.5 mg PO Q4 #15 tablet Sulfamethoxazole/Trimethoprim [Bactrim 400-80 mg Tablet] 1 each PO BID #14 tablet Forms: Return to Work Referrals: [facility] [NO LOCAL MD] - Follow up as needed
[2018-06-03 20:33] VITALS: BP 118/68
== END 2018-06-03 20:33 | disposition home or self-care (01) ==
LOC: ER 14:38
DX: N30.01 Acute cystitis with hematuria (principal); R10.2 Pelvic and perineal pain; R10.30 Lower abdominal pain, unspecified; Z91.040 Latex allergy status; Z88.0 Allergy status to penicillin
CPT/HCPCS: 99284; 96374; 96375; 36415; 87210; 85025; 81025; 80053; 81001; 80307; 87491; 87591; 76830; 93976; J1885; J2270; J2405

== ENCOUNTER 2018-06-29 18:48 | Emergency (ER) | payer OTHER ==
[2018-06-29 19:06] VITALS: BP 126/62
[2018-06-29 20:49] LABS: ABSOLUTE BASOPHILS # (AUTO) 0.1 10^3/uL (0.0-0.2); ABSOLUTE EOSINOPHILS # (AUTO) 0.1 10^3/uL (0.0-0.6); ABSOLUTE LYMPHOCYTES (AUTO) 2.9 10^3/uL (0.5-4.7); ABSOLUTE MONOCYTES (AUTO) 0.6 10^3/uL (0.1-1.4); ABSOLUTE NEUT (AUTO) 3.2 10^3/uL (1.7-8.2); BASOPHILS % (AUTO) 0.7 % (0-2); EOSINOPHILS % (AUTO) 1.6 % (0-6); HEMATOCRIT 39.8 % (36.0-47.0); HEMOGLOBIN 13.4 g/dL (12.0-15.5); LYMPHOCYTES % (AUTO) 42.7 % (13-45); MEAN CORPUSCULAR HEMOGLOBIN 27.9 pg (27.0-33.4); MEAN CORPUSCULAR HGB CONC 33.7 g/dL (32.0-36.0); MEAN CORPUSCULAR VOLUME 83 fl (80-97); MONOCYTES % (AUTO) 8.7 % (3-13); PLATELET COUNT 339 10^3/uL (150-450); RED CELL DISTRIBUTION WIDTH 13.6 % (11.5-14.0); SEGMENTED NEUTROPHILS % (AUTO) 46.3 % (42-78); TOTAL CELLS COUNTED % (AUTO) 100 %; WHITE BLOOD COUNT 6.9 10^3/uL (4.0-10.5)
[2018-06-29 21:04] LABS: ALANINE AMINOTRANSFERASE 24 U/L (9-52); ALBUMIN 4.6 g/dL (3.5-5.0); ALKALINE PHOSPHATASE 56 U/L (38-126); ANION GAP 7 (5-19); ASPARTATE AMINO TRANSFERASE 24 U/L (14-36); BILIRUBIN,DIRECT 0.3 mg/dL (0.0-0.4); BILIRUBIN,TOTAL 0.5 mg/dL (0.2-1.3); BLOOD UREA NITROGEN 11 mg/dL (7-20); CALCIUM 9.9 mg/dL (8.4-10.2); CARBON DIOXIDE 28 mmol/L (22-30); CHLORIDE 104 mmol/L (98-107); GLUCOSE 87 mg/dL (75-110); LIPASE 102.4 U/L (23-300); POTASSIUM 4.3 mmol/L (3.6-5.0); SODIUM 139.3 mmol/L (137-145); TOTAL PROTEIN 7.4 g/dL (6.3-8.2)
[2018-06-29 21:13] LABS: APPEARANCE,URINE SLIGHTLY-CLOUDY; BILIRUBIN,URINE NEGATIVE (NEGATIVE); CALCIUM OXALATE CRYSTALS,URINE RARE /HPF; COLOR,URINE YELLOW; GLUCOSE, URINE NEGATIVE (NEGATIVE); KETONES,URINE NEGATIVE (NEGATIVE); LEUKOCYTE ESTERASE,URINE TRACE (NEGATIVE); NITRITE,URINE NEGATIVE (NEGATIVE); PROTEIN,URINE NEGATIVE (NEGATIVE); URINE SPECIFIC GRAVITY 1.025; UROBILINOGEN,URINE NEGATIVE mg/dL (<2.0)
[2018-06-29] MEDS ORDERED: METOCLOPRAMIDE HCL INJ/PF 10 MG/2 ML SDV IM ONE (23:15)
--- NOTE | 2018-06-30 00:39 | ER Document Report ---
ED General - General Chief Complaint: Abdominal Injury Stated Complaint: ABDOMINAL PAIN/HEADACHE Time Seen by Provider: 06/29/18 23:09 Notes: Patient is a 23-year-old female who presents with complaint of abdominal pain . Patient says she has a history of ovarian cyst. She says that she has recurrent pain in her lower abdomen because of the ovarian cyst. This mass in the left side. She also is having some pain over her upper rib cage. She says she sometimes has this pain but the pain over the upper rib cages is worse than usual. She is unsure if it could be related to her ovarian cyst. Some nausea. No vomiting. She says she also has a headache. She has a history of recurrent migraines in the past that occur more during she says they also seem to occur when she is having pain somewhere else. She says they also seem to occur when she has stress. She said the one thing is different about this headache is that it is on the left side. She is usually her headaches are more diffuse. Headache is behind the left eye going to the back of her head. Headache is not sudden or maximal in onset. Headache is intermittent.. TRAVEL OUTSIDE OF THE [place] IN LAST 30 DAYS: No - Related Data Allergies/Adverse Reactions: latex Allergy (Verified 05/02/17 18:56) Penicillins Allergy (Verified 05/02/17 18:56) Past Medical History - Social History Smoking Status: Never Smoker Frequency of alcohol use: None Drug Abuse: None Family History: Reviewed & Not Pertinent Patient has suicidal ideation: No Patient has homicidal ideation: No Renal/ Medical History: Denies: Hx Peritoneal Dialysis Psychiatric Medical History: Reports: Hx Anxiety - Immunizations Hx Diphtheria, Pertussis, Tetanus Vaccination: Yes Review of Systems - Review of Systems Notes: My Normal Review Basic REVIEW OF SYSTEMS: CONSTITUTIONAL : Denies fever, chills, or sweats. Denies recent illness. CARDIOVASCULAR: Denies chest pain. RESPIRATORY: Denies cough, cold, or chest congestion. Denies shortness of breath, difficulty breathing, or wheezing. GASTROINTESTINAL: Some upper and lower abdominal pain. Some nausea. GENITOURINARY: Denies difficulty urinating, painful urination, burning, frequency, or blood in urine. FEMALE GENITOURINARY: Denies vaginal bleeding, abnormal or irregular periods. LMP: MUSCULOSKELETAL: Denies neck or back pain or joint pain or swelling. SKIN: Denies rash or skin lesions. NEUROLOGICAL: Denies altered mental status or loss of consciousness. Has a headache. Denies weakness or paralysis or loss of use of either side. Denies problems with gait or speech. Denies sensory or motor loss. ALL OTHER SYSTEMS REVIEWED AND NEGATIVE. Physical Exam - Vital signs Vitals: Temp Pulse Resp BP Pulse Ox 99.0 F 73 16 126/62 H 98 06/29/18 19:05 06/29/18 19:05 06/29/18 19:05 06/29/18 19:05 06/29/18 19:05 - Notes Notes: General Appearance: Well nourished, alert, cooperative, no acute distress, mild obvious discomfort. Well-appearing. Vitals: reviewed, See vital signs table. Head: no swelling or tenderness to the head Eyes: PERRL, EOMI, Conjuctiva clear Mouth: No decreasd moisture Neck: Supple, no neck tenderness, no neck swelling. Lungs: No wheezing, No rales, No rhonci, No accessory muscle use, good air exchange bilaterally. Heart: Normal rate, Regular rythm, No murmur, no rub Abdomen: Normal BS, soft, No rigidity, mild lower abdominal tenderness to palpation. Some mild tenderness to palpation just below the rib cage bilaterally. End of abdomen is nontender., No guarding, no rebound, no abdominal masses, no organomegaly Extremities: strength 5/5 in all extremities, good pulses in all extremities, no swelling or tenderness in the extremities, no edema. Skin: warm, dry, appropriate color, no rash Neuro: speech clear, oriented x 3, normal affect, responds appropriately to questions. No nerves II through XII are intact. Distal sensation intact. Patient able move all 4 extremities without difficulty. Normal coordination of movement. Course - Re-evaluation Re-evalutation: 06/30/18 00:43 Patient's headache completely resolved with 1 dose of Reglan. She looks well. Her pain sounds to be a chronic recurring thing. She thinks that the upper abdominal pain could be related to ovarian cysts however I told her this is unlikely. Her pain is right up against the rib cage itself. It is very minimally tender to palpation. Abdomen is very soft. She does have some lower abdominal pain is worse than left side where her ovarian cyst is. This pain is also mild to palpation. She does not have pain out of proportion to exam. I do not I do not suspect ovarian torsion based on her exam and the fact that she looks very comfortable on exam. Her headache is not consistent with subarachnoid and that is not sudden onset or maximal in onset. She has a history of previous migraines in regards to stressors such as , anxiety stress itself, or just pain from other places. Her headache completely resolved with Reglan. I do not feel that she needs a CT scan or further imaging. At this time we will discharge her home. I encouraged her follow-up closely with INTERNAL COMMUNICATIONS WRITER doctor. I encouraged her return to ER if she has worsening pain, or vomiting. Patient agrees with plan and will be discharged home. Dictation of this chart was performed using voice recognition software; therefore, there may be some unintended grammatical errors. - Vital Signs Vital signs: Temp Pulse Resp BP Pulse Ox 99.0 F 73 16 126/62 H 98 06/29/18 19:05 06/29/18 19:05 06/29/18 19:05 06/29/18 19:05 06/29/18 19:05 - Laboratory Result Diagrams: 06/29/18 20:15 06/29/18 20:15 Laboratory results interpreted by me: 06/29/18 20:15 Ur Leukocyte Esterase TRACE H Discharge - Discharge Clinical Impression: Abdominal pain Qualifiers: Abdominal location: unspecified location Qualified Code(s): R10.9 - Unspecified abdominal pain Headache Qualifiers: Headache type: unspecified Headache chronicity pattern: episodic headache Intra ctability: not intractable Qualified Code(s): R51 - Headache Condition: Good Disposition: HOME, SELF-CARE Additional Instructions: Your laboratory evaluation did not show any concerning findings. I have prescribed Reglan to help with the headache. Please eat a bland diet for the next several days. Please avoid caffeinated beverages. Please follow-up with your mail handlers supervisor in regards to your ovarian cysts. If you do not have a mail handlers supervisor and I will give you the phone number to our on-call mail handlers supervisor, Dr. Yanez. Please return to the ER if you have severe worsening pain, vomiting, fevers, or feel unwell. Prescriptions: Metoclopramide HCl [Reglan 10 mg Tablet] 1 tab PO ASDIR PRN #25 tablet PRN Reason: Referrals: GILMAR YANEZ MD [ACTIVE STAFF] - Follow up in 3-5 days
== END 2018-06-30 00:56 | disposition home or self-care (01) ==
LOC: ER 18:48
DX: N83.202 Unspecified ovarian cyst, left side (principal); R10.30 Lower abdominal pain, unspecified; R10.10 Upper abdominal pain, unspecified; R51 Headache; R07.81 Pleurodynia; R11.0 Nausea; Z86.69 Personal history of other diseases of the nervous system and sense organs; Z91.040 Latex allergy status; Z88.0 Allergy status to penicillin
CPT/HCPCS: 99284; 96372; 36415; 83690; 85025; 81025; 80053; 81001; J2765

== ENCOUNTER 2018-07-25 19:31 | Emergency (ER) | payer OTHER ==
[2018-07-25 20:03] VITALS: BP 111/64
[2018-07-25 20:42] LABS: APPEARANCE,URINE SLIGHTLY-CLOUDY; BILIRUBIN,URINE NEGATIVE (NEGATIVE); COLOR,URINE YELLOW; GLUCOSE, URINE NEGATIVE (NEGATIVE); KETONES,URINE NEGATIVE (NEGATIVE); LEUKOCYTE ESTERASE,URINE NEGATIVE (NEGATIVE); NITRITE,URINE NEGATIVE (NEGATIVE); PROTEIN,URINE NEGATIVE (NEGATIVE); URINE SPECIFIC GRAVITY 1.029; UROBILINOGEN,URINE NEGATIVE mg/dL (<2.0)
--- NOTE | 2018-07-25 22:05 | ER Document Report ---
ED Medical Screen (RME) - General Chief Complaint: Nausea/Vomiting Stated Complaint: NAUSEA/VOMITING Time Seen by Provider: 07/25/18 21:57 Mode of Arrival: Ambulatory Information source: Patient Notes: 23-year-old female presents to ED for complaint of nausea for several months. She states she is taken multiple tests at home and they have all been positive but the urine she took today is negative on at the emergency room. She states her last menstrual period was April 26 then on July 17 she had some bleeding that did not feel like a menstrual cycle. She states that a couple days ago she started having vomiting and diarrhea and the nausea is much worse. She states she has urinary frequency and urgency. She is to the emergency room to find out whether she is or is not . She states that her doctor told her that if she does have a negative test she should have an ultrasound to be sure that her ovarian cyst are not was causing her test to be positive. Patient is alert and oriented she does have signs and symptoms of upper respiratory infection runny nose cough congestion with clear lung sounds. CBC chemistry and hCG quant have been ordered in the pit area. Patient will be seen in the main ED. I have greeted and performed a rapid initial assessment of this patient. A comprehensive ED assessment and evaluation of the patient, analysis of test results and completion of medical decision making process will be conducted by an additional ED providers. TRAVEL OUTSIDE OF THE [place] IN LAST 30 DAYS: No - Related Data Allergies/Adverse Reactions: latex Allergy (Verified 05/02/17 18:56) Penicillins Allergy (Verified 05/02/17 18:56) Past Medical History Renal/ Medical History: Denies: Hx Peritoneal Dialysis Psychiatric Medical History: Reports: Hx Anxiety - Immunizations Hx Diphtheria, Pertussis, Tetanus Vaccination: Yes History of Influenza Vaccine for 03/2017 - 08/2017 Season: No Physical Exam - Vital signs Vitals: Temp Pulse Resp BP Pulse Ox 98.5 F 65 20 111/64 100 07/25/18 20:02 07/25/18 20:02 07/25/18 20:02 07/25/18 20:02 07/25/18 20:02 Course - Vital Signs Vital signs: Temp Pulse Resp BP Pulse Ox 98.5 F 65 20 111/64 100 07/25/18 20:02 07/25/18 20:02 07/25/18 20:02 07/25/18 20:02 07/25/18 20:02 - Laboratory Laboratory results interpreted by me: 07/25/18 19:40 Urine Ascorbic Acid 40 H
[2018-07-25 22:33] LABS: ABSOLUTE EOSINOPHILS # (AUTO) 0.1 10^3/uL (0.0-0.6); ABSOLUTE LYMPHOCYTES (AUTO) 3.3 10^3/uL (0.5-4.7); ABSOLUTE MONOCYTES (AUTO) 0.6 10^3/uL (0.1-1.4); BASOPHILS % (AUTO) 0.5 % (0-2); EOSINOPHILS % (AUTO) 1.1 % (0-6); HEMATOCRIT 39.5 % (36.0-47.0); HEMOGLOBIN 13.6 g/dL (12.0-15.5); LYMPHOCYTES % (AUTO) 36.7 % (13-45); MEAN CORPUSCULAR HGB CONC 34.4 g/dL (32.0-36.0); MEAN CORPUSCULAR VOLUME 82 fl (80-97); MONOCYTES % (AUTO) 6.3 % (3-13); PLATELET COUNT 382 10^3/uL (150-450); RED BLOOD COUNT 4.85 10^6/uL (3.72-5.28); RED CELL DISTRIBUTION WIDTH 13.4 % (11.5-14.0); SEGMENTED NEUTROPHILS % (AUTO) 55.4 % (42-78); TOTAL CELLS COUNTED % (AUTO) 100 %
[2018-07-25 22:55] LABS: ALANINE AMINOTRANSFERASE 44 U/L (9-52); ALBUMIN 4.9 g/dL (3.5-5.0); ALKALINE PHOSPHATASE 68 U/L (38-126); ANION GAP 10 (5-19); ASPARTATE AMINO TRANSFERASE 32 U/L (14-36); BILIRUBIN,DIRECT 0.1 mg/dL (0.0-0.4); BILIRUBIN,TOTAL 0.5 mg/dL (0.2-1.3); BLOOD UREA NITROGEN 9 mg/dL (7-20); CALCIUM 9.7 mg/dL (8.4-10.2); CARBON DIOXIDE 28 mmol/L (22-30); CHLORIDE 103 mmol/L (98-107); GLUCOSE 98 mg/dL (75-110); POTASSIUM 4.1 mmol/L (3.6-5.0); TOTAL PROTEIN 7.9 g/dL (6.3-8.2)
== END 2018-07-26 02:04 | disposition left against medical advice (07) ==
LOC: ER 19:31
DX: R11.2 Nausea with vomiting, unspecified (principal); Z91.040 Latex allergy status; Z88.0 Allergy status to penicillin
CPT/HCPCS: 36415; 80053; 81001; 81025; 84702; 85025; 99281

== ENCOUNTER 2018-11-01 18:59 | Emergency (ER) | payer OTHER ==
[2018-11-01 21:23] LABS: APPEARANCE,URINE SLIGHTLY-CLOUDY; BILIRUBIN,URINE NEGATIVE (NEGATIVE); COLOR,URINE YELLOW; GLUCOSE, URINE NEGATIVE (NEGATIVE); KETONES,URINE NEGATIVE (NEGATIVE); LEUKOCYTE ESTERASE,URINE TRACE (NEGATIVE); NITRITE,URINE NEGATIVE (NEGATIVE); PROTEIN,URINE NEGATIVE (NEGATIVE); URINE SPECIFIC GRAVITY 1.019; UROBILINOGEN,URINE NEGATIVE mg/dL (<2.0)
[2018-11-01] MEDS ORDERED: CEPHALEXIN 500 MG CAPSULE PO ONE (23:21)
--- NOTE | 2018-11-01 23:22 | ER Document Report ---
ED General - General Chief Complaint: Urinary Problem Stated Complaint: POSSIBLE UTI Time Seen by Provider: 11/01/18 22:57 Notes: Patient is a 23-year-old female without chronic medical problems who presents with 12 hours of pain with urination. Patient states that when she first urinated this morning she noticed a heaviness throbbing discomfort upon urination. States it is also difficult to urinate symptoms have been intermittent since that time. Nothing improves or worsens. Feels similar to when she had a urinary tract infection in the past. Denies flank pain, fever or constitutional symptoms. Has not seen her primary care doctor regarding today's concerns. TRAVEL OUTSIDE OF THE [place] IN LAST 30 DAYS: No - Related Data Allergies/Adverse Reactions: latex Allergy (Verified 05/02/17 18:56) Penicillins Allergy (Verified 05/02/17 18:56) Past Medical History - General Information source: Patient - Social History Smoking Status: Never Smoker Frequency of alcohol use: None Drug Abuse: None Lives with: Spouse/Significant other Family History: Reviewed & Not Pertinent Patient has suicidal ideation: No Patient has homicidal ideation: No Renal/ Medical History: Denies: Hx Peritoneal Dialysis Psychiatric Medical History: Reports: Hx Anxiety - Immunizations Hx Diphtheria, Pertussis, Tetanus Vaccination: Yes Review of Systems - Review of Systems Notes: Constitutional: Negative for fever. HENT: Negative for sore throat. Eyes: Negative for visual changes. Cardiovascular: Negative for chest pain. Respiratory: Negative for shortness of breath. Gastrointestinal: Negative for abdominal pain, vomiting or diarrhea. Genitourinary: Positive for dysuria. Musculoskeletal: Negative for back pain. Skin: Negative for rash. Neurological: Negative for headaches, weakness or numbness. 10 point ROS negative except as marked above and in HPI. Physical Exam - Vital signs Vitals: Temp Pulse Resp BP Pulse Ox 98.8 F 75 16 120/73 97 11/01/18 19:13 11/01/18 19:13 11/01/18 19:13 11/01/18 19:13 11/01/18 19:13 Interpretation: Normal Notes: PHYSICAL EXAMINATION: GENERAL: Well-appearing, well-nourished and in no acute distress. HEAD: Atraumatic, normocephalic. EYES: Pupils equal round and reactive to light, extraocular movements intact, sclera anicteric, conjunctiva are normal. ENT: nares patent, oropharynx clear without exudates. Moist mucous membranes. NECK: Normal range of motion, supple without lymphadenopathy LUNGS: Breath sounds clear to auscultation bilaterally and equal. No wheezes rales or rhonchi. HEART: Regular rate and rhythm without murmurs ABDOMEN: Soft, nontender, normoactive bowel sounds. No guarding, no rebound. No masses appreciated. EXTREMITIES: Normal range of motion, no pitting or edema. No cyanosis. NEUROLOGICAL: No focal neurological deficits. Moves all extremities spontaneously and on command. PSYCH: Normal mood, normal affect. SKIN: Warm, Dry, normal turgor, no rashes or lesions noted. Course - Re-evaluation Re-evalutation: 11/01/18 23:21 Patient presents with symptoms consistent with an acute cystitis. Vitals wnl. No history of fever, flank pain, or constitution symptoms to suggest ascending infection at this time. Patient is well in appearance, tolerating oral intake without difficulty. No focal abdominal tenderness to suggest acute appendicitis, biliary pathology, acute pancreatitis, tubo-ovarian abscesses, or pelvic inflammatory disease. Patient will be started on antibiotics at this time. A culture has been sent. At this time will discharge with return precautions and follow-up recommendations. Verbal discharge instructions given a the bedside and opportunity for questions given. Medication warnings reviewed. Patient is in agreement with this plan and has verbalized understanding of return precautions and the need for primary care follow-up in the next 24-72 hours. - Vital Signs Vital signs: Temp Pulse Resp BP Pulse Ox 97.8 F 93 16 103/71 98 11/01/18 23:39 11/01/18 23:39 11/01/18 23:39 11/01/18 23:43 11/01/18 23:39 - Laboratory Laboratory results interpreted by me: 11/01/18 19:10 Ur Leukocyte Esterase TRACE H Discharge - Discharge Clinical Impression: Cystitis Condition: Good Disposition: HOME, SELF-CARE Additional Instructions: Your urine shows findings consistent with a urinary tract infection. Please take all the antibiotics as directed even if your symptoms have improved. Please follow-up with your primary care physician as needed. Return to emergency room if you develop fever >101F, persistent vomiting, become lethargic, have severe pain in your sides, or any other symptoms that are concerning to you. Prescriptions: Cephalexin Monohydrate [Keflex 500 mg Capsule] 500 mg PO Q6H 5 Days capsule
[2018-11-01 23:43] VITALS: BP 103/71
== END 2018-11-01 23:43 | disposition home or self-care (01) ==
LOC: ER 18:59
DX: N30.90 Cystitis, unspecified without hematuria (principal); Z91.040 Latex allergy status; Z88.0 Allergy status to penicillin
CPT/HCPCS: 36415; 81001; 81025; 87086; 87088; 99283